=== PATIENT | female | born 1990 ===

== ENCOUNTER 2018-07-22 11:24 | Outpatient (REF) | payer MEDICAID, SELFPAY ==
--- NOTE | 2018-07-22 10:00 | PAPFT_PTH ---
PATIENT: JOSHUA LOBATO LOC: [facility] U#:[id number] AGE/SX: 28/F ROOM: RE07/22/[address]: Laura Barlow : 1990 BED: DIS: 07/22/2018 SPEC #: [id number] RECD: 07/23/18 13:16 STATUS: MABEL REQ #: [id number] HECTOR: 07/22/18 10:[address]: Laura Barlow DEPT: [facility] Cytology RECD BY: Angeles Santos Tissues: 1 - CX/ENDOCX FOR PAP SMEARS Procedures: PAP THIN PREP/U[facility] Screening HPV DNA PROBE Comments: [id number] (CHLAMYDIA/GC)
[2018-07-24 12:37] LABS: Chlamydia Result Negative; GC Result Negative; Specimen Description SEE COMMENTS
== END 2018-07-22 11:44 ==
LOC: NCHCN 11:24
PROVIDERS: PCP Registered Nurse; Visit Provider Registered Nurse
DX: Z11.3 Encounter for screening for infections with a predominantly sexual mode of transmission (principal); Z12.4 Encounter for screening for malignant neoplasm of cervix; Z11.51 Encounter for screening for human papillomavirus (HPV); Z00.00 Encounter for general adult medical examination without abnormal findings
CPT/HCPCS: 87491; 87591; 88142; 87624